=== PATIENT | male | born 1945 | race Hispanic/Latino ===

== ENCOUNTER 2022-09-20 19:53 | Emergency (ER) | payer MEDICAID, SELFPAY ==
--- NOTE | 2022-09-20 20:07 | ED.EYEPROB ---
HPI - Eye Problem General Stated complaint: trouble seeing Time Seen by Provider: 09/20/22 20:08 Source: patient and RN notes reviewed Mode of arrival: ambulatory Limitations: language barrier (Daughter translating) History of Present Illness HPI Narrative: 77-year-old male presents with concern for chronic vision problems and eye irritation. 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 He reports this problem has been going on for quite some time, several months ago he saw an eye doctor in [place] that prescribed drops that did not make much of a difference. He saw another eye doctor in [place] who prescribed drops that helped temporarily, this eye doctor told him he may have to have surgery on his eyes. The patient is not aware what kind of eyedrops he has been taking. He denies any acute changes that brought him to seek care tonight. He reports he has an eye doctor appointment tomorrow morning. chief complaint: vision change Related Data Allergies Allergy/AdvReac Type Severity Reaction Status Date / Time No Known Allergies Allergy Verified 09/20/22 20:27 Review of Systems Review of Systems: CONSTITUTIONAL: Denies malaise, chills, sweats, or fever. EYES: Reports visual changes over the last 6-10 months. Reports right eye redness, irritation, discharge. ENT: Denies rhinorrhea, congestion, sinus pain, otalgia or sore throat. SKIN: Denies rash or itching. NEUROLOGIC: Denies numbness, weakness, or headache. PSYCHIATRIC: Denies anxiety or depression. All systems reviewed & are unremarkable except as noted in HPI and below PMFSH Comments At time of signature, agree with nursing past medical, surgical, social and family history. There is no relevant family history pertinent to the presenting complaint Exam Narrative: GENERAL: Well-appearing, well-nourished, and in no acute distress. HEAD: Normocephalic, atraumatic. EYES: PERRLA, EOMI. No nystagmus. Right lower lashes in-turned with slight lower lid erythema, visible cloud over both eyes, mild conjunctival edema bilaterally crossing over the limbus bilaterally. No periorbital edema noted ENT: Nares clear, turbinates pink, no rhinorrhea or epistaxis. Mucous membranes moist. TM pearly foreman with sharp light reflex bilaterally; no tragal tenderness. NECK: Supple. CHEST: No respiratory distress. Speaks in full sentences. HEART: Regular rate and rhythm. SKIN: Warm, dry, no visible rash. NEURO: Alert and oriented x3. PSYCH: Normal mood and affect Course Course Emergency Course: Discussed with patient and his daughters that patient's vision problems require evaluation from an orthopedic coder, given that the appointment is tomorrow morning I discussed limited utility of an eye drop prescription tonight, I prefer for the eye doctor to evaluate the patient first. They are agreeable and agree keep the eye doctor appointment tomorrow. Patient is aware of, understands and agrees to treatment plan. Anticipatory guidance given. Patient agrees to follow-up as directed and is aware of reasons to seek care at the emergency department. Portions of this record may have been created with voice recognition software Level of Care: Express Care Visit Vital Signs Vital signs: Reviewed. MDM - Eye Problem MDM Narrative Medical decision making narrative: Consideration of the following conditions may be warranted for the presenting problem, they are not final diagnoses: Bacterial conjunctivitis, allergic conjunctivitis, viral conjunctivitis, foreign body, blepharitis, chalazion, hordeolum, corneal abrasion, preseptal cellulitis, orbital cellulitis. No evidence of proptosis, ophthalmoplegia, vision loss, pain with eye movement. Exam findings show no acute concerns or changes; patient is non-toxic appearing and is in no distress. Patient is appropriate for outpatient treatment and follow-up. Critical Care Time Critical Care Time Critical C
[2022-09-20 20:08] VITALS: BP 155/76; PULSE 69; RESP 12; TEMP 36.7; O2SAT 98
== END 2022-09-20 20:35 | disposition home or self-care (01) ==
PROVIDERS: Emergency Provider Nurse Practitioner
DX: H57.89 Other specified disorders of eye and adnexa (principal)
CPT/HCPCS: 99202; G0463

== ENCOUNTER 2024-01-21 10:02 | Outpatient (CLI) | payer BC, SELFPAY ==
--- NOTE | ~2024-01-21 | CT_ITS ---
CT Scan of the Chest without Contrast: Clinical Indication: Lung cancer screening, nicotine dependence Technique: Contiguous sections were acquired throughout the chest without intravenous contrast. Dose reduction technique was used on this scan by utilizing automated exposure control and iterative recon struction technique. The dose-length product (DLP) was 76.01 mGy-cm. Findings: There is no evidence of any significant mediastinal, hilar or axillary lymphadenopathy. The mediastin al soft tissues appear normal. There is no evidence of pleural or pericardial effusion. The lungs are clear, aside from calcified left upper lobe granuloma. Images through the upper abdomen reveal no abnormalities. Impression: Lung RADS 2: Benign appearance. 12 month follow-up screening CT advised. Reviewed, dictated and finalized at location . Impression: Lung RADS 2: Benign appearance. 12 month follow-up screening CT advised.
== END 2024-01-21 10:03 | disposition home or self-care (01) ==
LOC: ANHIMG 10:02
PROVIDERS: PCP Physician Assistant; Visit Provider Physician Assistant
DX: Z12.2 Encounter for screening for malignant neoplasm of respiratory organs (principal); Z87.891 Personal history of nicotine dependence
CPT/HCPCS: 71271

== ENCOUNTER 2024-02-03 17:50 | Inpatient (IN) | payer BC, SELFPAY ==
[2024-02-03] VITALS (9 sets, daily range): BP systolic 174–232; BP diastolic 59–99; PULSE 31–68; RESP 12–20; TEMP 36.2; O2SAT 95–100; BMI 23.9
--- NOTE | ~2024-02-03 | XR_ITS ---
EXAMINATION: XR chest 2V DATE: 02/07/2024 10:59 INDICATION: 24 hours post pacemaker insertion. TECHNIQUE: PA and lateral views of the chest were obtained. COMPARISON: 02/06/2024 and 02/03/2024 FINDINGS: Airspace opacity in the infrahilar right lower lung. Left lung is clear. No pulmonary edema, pleural effusion or pneumothorax. The cardiomediastinal silhouette is normal. Dual lead pacemaker seen with l chely projecting over the expected locations of the right atrium and right ventricle. IMPRESSION: 1. Mild opacities in the right infrahilar region which could represent atelectasis or pneumonia. Reviewed, dictated and finalized at location A. IMPRESSION: 1. Mild opacities in the right infrahilar region which could represent atelecta sis or pneumonia.
--- NOTE | ~2024-02-03 | CT_ITS ---
CT brain wo con Ordering provider: Jayleen June MD History: 78 years Male with . dizziness . Comparison: None. Technique: CT of the head without contrast. Radiation reduction technique utilized. DLP is 605.33 mGy . FINDINGS: BRAIN PARENCHYMA AND CSF SPACES: Old lacunar infarct in the left basal ganglia. 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 No midline shift, mass effect or hemorrhage. The brain parenchyma and CSF spaces are otherwise normal. VISUALIZED PARANASAL SINUSES: Well aerated. MASTOIDS: Well aerated. BONES: The bones appear intact. SOFT TISSUES: Visualized nasopharynx is normal. Superficial soft tissues are normal. IMPRESSION: No acute intracranial findings. Old lacunar infarct in the left basal ganglia. Widening of the space around the frontal lobes which may indicate CSF hygromas. Follow-up advised. Reviewed, dictated and finalized at location A. IMPRESSION: No acute intracranial findings. Old lacunar infarct in the left basal ganglia. Widening of the space around the frontal lobes which may indicate CSF hygromas . Follow-up advised.
--- NOTE | ~2024-02-03 | XR_ITS ---
EXAMINATION: XR chest 1V portable DATE: 02/06/2024 13:02 INDICATION: Pacemaker insertion TECHNIQUE: frontal view of the chest was obtained. COMPARISON: Chest radiograph dated 02/03/24 FINDINGS: There is mild bronchial wall thickening in the bilateral perihilar regions. Persistent subtle opaciti es in the left lower lung partially obscuring the left heart border. No pleural effusion or pneumotho rax. The heart size is normal. Dual lead pacemaker seen with leads projecting over the expected loca tions of the right atrium and right ventricle. IMPRESSION: 1. Bilateral perihilar bronchial wall thickening with mild opacities in the left lower lung zones whi ch could represent bronchitis with early pneumonia or mild pulmonary edema. Reviewed, dictated and finalized at location B. IMPRESSION: 1. Bilateral perihilar bronchial wall thickening with mild opacities in the lef t lower lung zones which could represent bronchitis with early pneumonia or mil d pulmonary edema.
--- NOTE | ~2024-02-03 | XR_ITS ---
XR chest 1V portable Ordering provider: Jayleen June MD History: 78 years Male with . bradycardia, HTN . Comparison: None. FINDINGS: MEDIASTINUM: The cardiac silhouette is slightly enlarged. LUNGS: No effusion or pneumothorax. Prominent markings in lower lobes more on the left side. Early pn eumonia is not excluded. OTHER: No free air under the diaphragm. Degenerative changes of the spine. IMPRESSION: Prominent markings in the lower lobes. Early pneumonia in the left lung base is not excluded. Reviewed, dictated and finalized at location A.
--- NOTE | 2024-02-03 18:54 | ECG_ITS ---
Test Date: 2024-02-03 19:00:49 Measurements Intervals [place] Rate: 49 P: 55 MA: 163 QRS: 43 QRSD: 96 T: -4 QT: 445 QTc: 405 Interpretive Statements SINUS BRADYCARDIA POSSIBLE LEFT ATRIAL ENLARGEMENT [-0.1mV P WAVE IN V1/V2] NONSPECIFIC ST AND T WAVE ABNORMALITY No previous ECG available for comparison Electronically Signed On 02-04-2024 11:49:49 CDT by Shadia Zheng M.D.
--- NOTE | 2024-02-03 19:05 | ED.RECABL ---
HPI - Recheck/Abnormal Lab/Rx General Chief Complaint: Recheck/Abnormal Lab/Rx Stated Complaint: high blood pressure Time Seen by Provider: 02/03/24 19:01 Source: patient and family Mode of arrival: ambulatory Limitations: language barrier ( Uzbek speaking; Interpretive services [facility] #[id number]) History of Present Illness HPI narrative: patient presents with concern for hypertension. He reports being compliant on his medication which is lisinopril 5 mg daily. He has also been experiencing dizziness since Friday. He denies any chest pain or shortness of breath although he has been having a headache when he coughs. He notes that he has been coughing particularly at night during which time he feels hot. He notes that he has had urinary frequency ever since his cholecystectomy. No prior myocardial infarction. No slurred speech or unilateral symptoms with his dizziness. He was told that his cholesterol was high but he is not on a statin. 5 cigarettes/day. Related Data Home Medications Medication Instructions Recorded Confirmed lisinopril 5 mg PO DAILY 02/03/24 02/03/24 Allergies Allergy/AdvReac Type Severity Reaction Status Date / Time No Known Allergies Allergy Verified 09/20/22 20:27 [facility] Past Medical History Medical History High cholesterol Hypertension Surgical History Surgical History History of cholecystectomy [facility] Social History Social History Years smoked: 66 Smoking status: Current every day smoker Tobacco type: cigarettes Alcohol intake: never Substance use: current Last use: 02/03/2024 Do You Feel Safe in your Home?: Yes Lack of Transportation: YES Lack of Food: Never True Current Housing: I Have Housing Concerned About Future Housing: No Difficulty Paying Gas/Electric Bills: No Difficulty Paying for Meds: No Currently Unemployed: No Education: Grade School Difficulty w/ Childcare or Family Care: No Spiritual care concerns: No Exam Narrative: GENERAL: Well-appearing, well-nourished, and in no acute distress. HEAD: Normocephalic, atraumatic. EYES: Non injected, non icteric ENT: Nares clear, no rhinorrhea or epistaxis. NECK: Supple. CHEST: Speaking in full sentences. No respiratory distress. HEART: Intermittently bradycardic rate and rhythm to the 30s ABDOMEN: Soft, nondistended. EXTREMITIES: Normal range of motion. No lower extremity edema. SKIN: Warm, dry, no rash. NEURO: No focal deficits. Alert and oriented x3. PSYCH: Normal mood and affect. Course Vital Signs Vital signs: Vital Signs Temperature 97.2 F L 02/03/24 18:18 Pulse Rate 68 02/03/24 18:18 Respiratory Rate 17 02/03/24 18:18 Blood Pressure 200/62 H 02/03/24 18:18 Pulse Oximetry 99 02/03/24 18:18 Oxygen Delivery Room Air 02/03/24 18:18 Temperature 98.4 F 02/05/24 08:00 Pulse Rate 45 L 02/05/24 10:00 Respiratory Rate 20 02/05/24 08:00 Blood Pressure 171/72 H 02/05/24 08:00 Pulse Oximetry 94 02/05/24 08:00 Oxygen Delivery Room Air 02/05/24 08:00 MDM - Recheck/Abnormal Lab/Rx MDM Narrative Medical decision making narrative: patient presents with concern for dizziness and high blood pressure Despite being compliant with his 5 mg daily lisinopril. in the emergency department he is afebrile with vital signs that show marked hypertension at 200/62 (MAP 108mmHg). Patient does become bradycardic in the 30s. He remains hemodynamically stable without altered mental status and with hypertension. 0.5mg atropine given with no change. Patient is not on a beta-bernarda or calcium channel bernarda or digoxin. He does have some concerning findings in lateral precordial leads. Await troponin. While bradycardic in the 30s, repeat EKG obtained which demonstrates Type 2 Mobitz II in
--- NOTE | 2024-02-03 19:12 | ECG_ITS ---
Test Date: 2024-02-03 21:51:39 Measurements Intervals [place] Rate: 50 P: 58 NV: 159 QRS: 52 QRSD: 98 T: -88 QT: 504 QTc: 460 Interpretive Statements SINUS BRADYCARDIA WITH 2:1 AV BLOCK WITH FREQUENT VENTRICULAR PREMATURE COMPLEXES ST DEVIATION AND MODERATE T-WAVE ABNORMALITY, CONSIDER LATERAL ISCHEMIA [-0.1+ mV T WAVE IN I/aVL/V5/V6] ST DEVIATION AND MODERATE T-WAVE ABNORMALITY, CONSIDER INFERIOR ISCHEMIA [-0.1+ mV T WAVE IN II/aVF] Compared to ECG 02/03/2024 19:00:49 2:1 AV BLOCK NOW PRESENT Electronically Signed On 02-04-2024 11:51:18 CDT by Shadia Zheng M.D.
[2024-02-03 19:20] LABS: Basophils Absolute Auto 0.1 K/mm3 (0.0-0.1); Basophils Percent Auto 0.8 % (0.2-1.2); Eosinophils Absolute Auto 0.2 K/mm3 (0-0.3); Eosinophils Percent Auto 1.9 % (0-4.4); Hematocrit 44.7 % (42.0-52.0); Hemoglobin 14.6 g/dL (14.0-18.0); Immature Granulocyte Absolute 0.02 K/mm3 (0.00-0.031); Immature Granulocyte Percent A 0.2 % (0-0.5); Immature Platelet Fraction Pct 15.3 % (0.9-11.2); Lymphocytes Percent Auto 30.6 % (18.3-44.2); Mean Corpuscular HGB Conc 32.7 g/dl (32-36); Mean Corpuscular Hemoglobin 27.8 pg (26-34); Mean Platelet Volume 13.2 fl (7.4-10.4); Monocytes Absolute Auto 0.9 K/mm3 (0.1-0.6); Monocytes Percent Auto 10.6 % (2.6-8.5); Neutrophils Absolute Auto 4.9 K/mm3 (1.3-6.7); Neutrophils Percent Auto 55.9 % (45.5-73.1); Platelet Count Result 127 k/mm3 (150-375); Red Blood Count 5.26 M/mm3 (4.6-6.20); Red Cell Distribution Width 14.5 % (11.5-14.5); White Blood Count 8.8 K/mm3 (4.5-10.0)
[2024-02-03] MEDS: ATROPINE SULFATE 1 MG/ML VIAL 0.5 MG IV PUSH (19:26)
[2024-02-03 19:28] LABS: Alanine Aminotransferase 14 U/L (6-50); Alkaline Phosphatase 73 U/L (38-126); Anion Gap 5 mmol/L (4-12); Aspartate Amino Transferase 24 U/L (17-59); Bilirubin,Total 0.5 mg/dL (0.2-1.3); Blood Urea Nitrogen 24 mg/dL (9-20); Calcium 8.3 mg/dL (8.4-10.2); Carbon Dioxide 28 mmol/L (22-30); Chloride 107 mmol/L (98-107); Estimated CRCL calculation 54 ml/min; Estimated Glomerular Filt Rate > 60; Glucose 115 mg/dL (65-110); Magnesium 2.4 mg/dL (1.6-2.3); Potassium 3.8 mmol/L (3.4-5.0); Sodium 140 mmol/L (137-145)
--- NOTE | 2024-02-03 19:45 | PC.NURSE ---
Provider aware of pts low HRs, no further orders after administration of 0.5mg Atropine. 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
[2024-02-03 19:56] LABS: Appearance Urine Clear (Clear); Bilirubin Urine Negative (Negative); Blood Urine Negative (Negative); Color Urine Yellow (Yellow); Glucose Urine UA Negative (Negative); Ketones Urine Negative (Negative); Leukocyte Esterase Ur Negative LEU/UL (Negative); Nitrate Urine Negative (Negative); Protein Urine Negative (Negative); Specific Grav Ur 1.019 (1.001-1.035); pH Urine 6.5 (5.0-9.0)
[2024-02-03] MEDS: hydrALAZINE HCL 20 MG/ML VIAL 10 MG IV PUSH (20:05)
[2024-02-03 20:07] LABS: Add Urine Microscopic? NO
[2024-02-03 20:47] LABS: Troponin I < 0.012 ng/mL (0.000-0.034)
[2024-02-03 20:49] LABS: Influenza A QL RT-PCR Negative (Negative); Influenza B QL RT-PCR Negative (Negative); RSV RNA, RT-PCR Negative (Negative); SARS-CoV-2 RNA PCR Negative (Negative)
[2024-02-03] MEDS: hydrALAZINE HCL 20 MG/ML VIAL IV PUSH (21:11)
--- NOTE | 2024-02-03 21:34 | ECG_ITS ---
Test Date: 2024-02-03 19:11:30 Measurements Intervals [place] Rate: 33 P: 0 PA: 0 QRS: 38 QRSD: 90 T: -40 QT: 510 QTc: 380 Interpretive Statements SINUS BRADYCARDIA WITH 2:[address] DEVIATION AND MODERATE T-WAVE ABNORMALITY, CONSIDER LATERAL ISCHEMIA [-0.1+ mV T WAVE IN I/aVL/V5/V6] Compared to ECG 02/03/2024 19:00:49 2:1 AV BLOCK NOW PRESENT Electronically Signed On 02-04-2024 13:09:19 CDT by Shadia Zheng M.D.
--- NOTE | 2024-02-03 21:53 | PM.IMHP ---
H&P: HPI History of Present Illness Date/Time: 02/03/24 21:53 Chief Complaint: dizzy Narrative: This is a 78-year-old male with past medical history significant for hypertension, tobacco dependence. patient was brought to the emergency room for evaluation due to dizziness for several days, patient denies any vision changes, shortness of breath, chest pain, leg swelling, syncope or near-syncope, No fevers, no rigors, no chills. in emergency room patient was found to have a systolic blood pressure of 230/87. Patient was also found to have a heart rate that was elated in between 30-50. Patient had pacer pads placed on. Patient has been admitted for further evaluation management and treatment. XR chest 1V portable Ordering provider: Jayleen June MD History: 78 years Male with . bradycardia, HTN . Comparison: None. FINDINGS: MEDIASTINUM: The cardiac silhouette is slightly enlarged. LUNGS: No effusion or pneumothorax. Prominent markings in lower lobes more on the left side. Early pneumonia is not excluded. OTHER: No free air under the diaphragm. Degenerative changes of the spine. IMPRESSION: Prominent markings in the lower lobes. Early pneumonia in the left lung base is not excluded. CT brain wo con Ordering provider: Jayleen June MD History: 78 years Male with . dizziness . Comparison: None. Technique: CT of the head without contrast. Radiation reduction technique utilized. DLP is 605.33 mGy. FINDINGS: BRAIN PARENCHYMA AND CSF SPACES: Old lacunar infarct in the left basal ganglia. 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 No midline shift, mass effect or hemorrhage. The brain parenchyma and CSF spaces are otherwise normal. VISUALIZED PARANASAL SINUSES: Well aerated. MASTOIDS: Well aerated. BONES: The bones appear intact. SOFT TISSUES: Visualized nasopharynx is normal. Superficial soft tissues are normal. IMPRESSION: No acute intracranial findings. Old lacunar infarct in the left basal ganglia. Widening of the space around the frontal lobes which may indicate CSF hygromas. Follow-up advised. Review of Systems Review of Systems: dizziness. Constitutional: Constitutional: Denies chills, Denies fatigue, Denies fever(s), Denies frequent falls, Denies headache(s), Denies malaise, Denies night sweats, Denies poor appetite and Denies weakness Eyes: Eyes: Denies change in vision ENT: Denies dysphagia, Denies vertigo, Reports dizziness, Denies nasal congestion, Denies nasal discharge, Denies odynophagia and Denies disequilibrium Cardiovascular: Cardiovascular: Denies chest pain, Denies syncope, Denies leg edema, Reports lightheadedness, Denies radiating jaw, neck or arm pain, Denies palpitations and Denies dyspnea Respiratory: Respiratory: Denies chest congestion, Reports cough and Denies dyspnea Gastrointestinal: Gastrointestinal: Denies abdominal pain, Denies nausea and Denies vomiting Genitourinary: Genitourinary: Denies dysuria Musculoskeletal: Musculoskeletal: Denies myalgias Integumentary/Breasts: Skin/Breast: Denies rash Neurologic: Denies abnormal gait, Reports dizziness, Denies focal weakness and Denies Sensory deficit (Neuro) Psychiatric: Psychiatric: Reports no additional psychiatric complaints and Reports as per HPI Endocrine: Endocrine: Denies cold intolerance, Denies heat intolerance, Denies polyphagia, Denies polydipsia and Denies polyuria Hematologic/Lymphatic: Hematologic/Lymphatic: Reports no additional hematologic/lymphatic complaints and Reports as per HPI Allergic/Immunologic: Allergic/Immunologic: Reports no additional allergic/immunologic complaints and Reports as per HPI [facility] Past Medical History Medical History (Updated 02/04/24 @ 00:02 by Bj Lopes MD) High cholesterol Hypertension Surgical History Surgical History (Updated 02/03/24 @ 19:29 by Charleen
[2024-02-03] MEDS: hydrALAZINE 10 MG TABLET PO (22:33)
[2024-02-03 22:56] LABS: Troponin I 0.019 ng/mL (0.000-0.034)
--- NOTE | 2024-02-03 23:54 | ADMGEN ---
This patient, Bret Villarreal, was admitted to IMU Room 231-01. Patient/family oriented to hospital policies and general routines including ID bracelet, bed and alarms, visiting hours, pain management, procedures, bathroom and other care routines, personal items, smoking policy, room service/diet, and visiting hours. Information on how to activate the Rapid Response Team has been discussed. Patient/Family are encouraged to report perceived risks to care and to ask questions if they do not understand what they are told or what they should do. Pt arrived to the floor at 2335.
[2024-02-04] VITALS (14 sets, daily range): BP systolic 152–187; BP diastolic 47–64; PULSE 30–93; RESP 16–18; TEMP 36.1–36.6; O2SAT 95–98
--- NOTE | 2024-02-04 | ECHO_ITS ---
Patient Info Name: Bret Villarreal Age: 78 years : 1945 Gender: Male Ht: 66 in Wt: 169 lbs BSA: 1.91 m2 HR: 35 bpm BP: 167 / 47 mmHg Heart Rhythm: Bradycardia Technical Quality: Good Exam Date: 02/04/2024 7:21 AM Exam Location: Echo Lab Patient Status: Inpatient Admit Date: 02/03/2024 Staff Ordering Physician: Bj Lopes MD [employer]: Viji Real RDCS Attending Provider: Bj Lopes MD Referring Physician: Marianne WHITNEY; Exam Type: CA echo doppler color flow Study Info Indications - uncontrolled htn Complete two-dimensional, color flow and Doppler transthoracic echocardiogram is performed with contrast to opacify the left ventricle and to improve the deliniation of the left ventricle endocardial borders. Contrast/Agitated Saline Contrast/Ag. Saline: Definity Amount: 2.00 ml Administered By: Viji Real RDCS Existing IV Access: Yes IV Access Condition: patent with no signs of infiltration Summary 1. Left ventricular chamber dimension is normal. 2. Left ventricular systolic function is normal, estimated at 65-70%. 3. The left ventricular diastolic function is grade I diastolic dysfunction. 4. Right ventricular systolic function is normal. 5. There is mild mitral valve regurgitation. 6. There is mild tricuspid valve regurgitation. Left Ventricle Left ventricular chamber dimension is normal. Left ventricular systolic function is normal, estimated at 65-70%. There is no increased left ventricular wall thickness. The left ventricular diastolic function is grade I diastolic dysfunction. Right Ventricle Right ventricular chamber dimension is normal. Right ventricular systolic function is normal. Left Atria Left atrial chamber dimension is normal. Right Atria Right atrial chamber dimension is normal. Atrial Septum Intact interatrial septum visualized by color flow imaging. Aortic Valve The aortic valve is trileaflet. There is no aortic valve stenosis. There is no aortic valve regurgitation. There is mild aortic valve calcification. Pulmonic Valve The pulmonic valve is not well visualized. There is trace pulmonic regurgitation. Mitral Valve There is mild mitral valve regurgitation. Tricuspid Valve There is mild tricuspid valve regurgitation. Pericardium/Pleural There is no pericardial effusion. Inferior Vena Cava Normal inferior vena cava with >50% collapse upon inspiration consistent with normal right atrial pressure, 3 mmHg. Aorta The aortic root size at the sinus of Valsalva is normal. Left Ventricular Outflow Tract Name Value Normal LVOT 2D LVOT Diameter 2.0 cm LVOT Doppler LVOT Peak Gradient 8 mmHg LVOT Mean Gradient 4 mmHg LVOT VTI 33 cm LVOT VTI/AV VTI Ratio 0.8 LVOT Stroke Volume 108 ml LVOT CO 3.5 l/min LVOT CI 1.8 l/min/m2 Pulmonic Valve Name Value
[2024-02-04] MEDS: PERFLUTREN LIPID MICROSPHERES 1.5 ML VIAL DILUTED TO 10 ML TOTAL VOLUME IV PUSH (07:54)
[2024-02-04] MEDS: lisinopriL 5 MG TABLET PO ×2 (08:13→11:30)
--- NOTE | 2024-02-04 09:24 | PM.CNCAR ---
Assessment and Plan Assessment and plan (1) High-grade atrioventricular block: Code(s): I44.39 - Other atrioventricular block Status: Acute Assessment and Plan: Patient currently in sinus bradycardia with 2:1 AV block. Atropine 0.5mg x 1 given in the ER with no improvement. Not on any AV clementina blocking agents. Upon my evaluation, patient denies any symptoms. Remains hemodynamically stable. Telemetry with sinus bradycardia with 2:1 AV block that is persistent. Heart rates on telemetry overnight as low as the high 20s and will go up to the 60s. Troponins are negative. Will check TSH level. Echocardiogram ordered and pending. As patient currently asymptomatic at rest and hemodynamically stable, does not need emergent/urgent temporary transvenous pacer. Will need permanent pacemaker. Discussed indication for permanent pacemaker with the patient and procedure details. Patient agreeable. I did discuss with the patient that if his LVEF <35%, then he would need an ICD instead, and this would not be done here, necessitating transfer to another institution. If LVEF is preserved, then can proceed with pacemaker implantation here. Will discuss with Dr. Fernandez regarding timing of pacemaker placement. (2) Hypertensive crisis: Code(s): I16.9 - Hypertensive crisis, unspecified Status: Acute Assessment and Plan: Improved, however, blood pressures are still uncontrolled. Will increase Lisinopril to 10mg. Avoid AV clementina blocking agents due to 2:1 AV block. Echocardiogram pending. (3) Tobacco dependence: Code(s): F17.200 - Nicotine dependence, unspecified, uncomplicated Status: Acute Assessment and Plan: Encourage cessation. Plan Recommendations and plan discussed with Hospitalist. Case discussed with Dr. Fernandez. History of Present Illness History of Present Illness Consult date/time: 02/04/24 09:24 Requesting physician: Jayleen June MD Consult reason: Other (Bradycardia ) Reason For Visit: Hypertensive Crisis with Bradycardia Narrative: This is a 78 year old male with hypertension and tobacco dependence who presented with dizziness that has been occurring since Friday. No chest pain, shortness of breath, palpitations, syncope. No symptoms at rest during my evaluation. Blood pressures in the ER as high as 232/87mmHg. He was given Hydralazine with improvement in blood pressure. He takes Lisinopril 5mg once daily, which was resumed. In the ER, EKG shows sinus bradycardia with 2:1 AV block, with heart rates as low as the 30s. Atropine 0.5mg x 1 given with no improvement. Not on any AV clementina blocking agents. Upon my evaluation, patient denies any symptoms. Telemetry with sinus bradycardia with 2:1 AV block that is persistent. Heart rates on telemetry overnight as low as the high 20s and will go up to the 60s. Troponins are negative. Of note, patient is [place] speaking only. His daughter was at bedside, but she is also [place] speaking only. Interpretation done via the hospital seismic interpreter services. Review of Systems Review of Systems: All systems reviewed & are unremarkable except as noted in HPI and below (HPI) PMFSH Past Medical History Medical History High cholesterol Hypertension Surgical History Surgical History History of cholecystectomy [place] Social History Social History Years smoked: 66 Smoking status: Current every day smoker Tobacco type: cigarettes Alcohol intake: never Substance use: current Last use: 02/03/2024 Do You Feel Safe in your Home?: Yes Lack of Transportation: YES Lack of Food: Never True Current Housing: I Have Housing Concerned About Future Housing: No Difficulty Paying Gas/Electric Bills: No Difficulty Paying for Meds: No Currently Unemployed: No Education: Gr
--- NOTE | 2024-02-04 09:27 | IVDEFINITY ---
Prior to administration of IV Definity the patient was educated on the risks and benefits of the imaging enhancing agent including potential adverse side effects. The patient verbalized understanding. Allergies were verified. No exclusion criteria were identified and at least one of the following inclusion criteria were met: 1) physician request, 2) patient technically difficult to image (per the [place] [employer] guidelines of two or more segments not discernable within the apical view), or 3) questionable left ventricular function. ?
--- NOTE | 2024-02-04 09:33 | PM.IMPN ---
Progress Note: A&P Assessment and Plan (1) High-grade atrioventricular block: Code(s): I44.39 - Other atrioventricular block Status: Acute (2) Tobacco dependence: Code(s): F17.200 - Nicotine dependence, unspecified, uncomplicated Status: Acute (3) Hypertensive crisis: Code(s): I16.9 - Hypertensive crisis, unspecified Status: Acute (4) Thrombocytopenia: Code(s): D69.6 - Thrombocytopenia, unspecified Status: Acute Plan This is a 78-year-old male with past medical history significant for hypertension, tobacco dependence. patient was brought to the emergency room for evaluation due to dizziness for several days, patient denies any vision changes, shortness of breath, chest pain, leg swelling, syncope or near-syncope, No fevers, no rigors, no chills. in emergency room patient was found to have a systolic blood pressure of 230/87. Patient was also found to have a heart rate that was elated in between 30-50. Patient had pacer pads placed on. Patient has been admitted for further evaluation management and treatment. Symptomatic second-degree AV block, Mobitz 2 Patient has dizziness EKG showed second-degree AV block Mobitz 2, 2 :1 conduction Hold beta-bernarda, calcium channel bernarda Pending echocardiogram Telemetry monitoring Consult manager support services for evaluation treatment Hypertensive emergency Code(s): Blood pressure 232/ 87 POA Will increase to lisinopril 20 mg daily p.o., hydrochlorothiazide 25 mg once and daily p.o. hydralazine 50 mg t.i.d. p.o. Continue hydralazine IV p.r.n. with parameters Avoid calcium channel bernarda beta-bernarda Tobacco dependence: Code(s): F17.200 - Nicotine dependence, unspecified, uncomplicated Status: Acute Assessment and Plan: nicotine patch as needed Subjective Date/time seen: 02/04/24 09:33 Interval history: I saw and examined the patient in presents of patient's nurse, conversation was is interpreted by patient's daughter. Patient denied lightheadedness, palpitation, chest pain, shortness of breath at rest. Patient afebrile, blood pressure stable, telemetry showed high-grade AV block 2:1 conduction Exam Narrative: GENERAL: Pleasant, in no acute distress. Well-nourished. - EYES: EOMI. Anicteric. - HENT: Moist mucous membranes. - LUNGS: Clear to auscultation bilaterally, no wheezing, rhonchi, or rales. - CARDIOVASCULAR: Irregular rhythm, bradycardia,. No murmur. No JVD. - ABDOMEN: Soft, non-tender and non-distended. No palpable masses. - EXTREMITIES: No edema. Peripheral pulses 2+. Non-tender. - NEUROLOGIC: No focal neurological deficits. CN II-XII grossly intact. - PSYCHIATRIC: Awake, Alert and oriented x 3. Appropriate mood and affect. - SKIN: No rashes or lesions. Warm. - LYMPH: No cervical lymphadenopathy. Objective Data Vital Signs Vital Signs: Vital Signs - 24 hr 02/03/24 18:18 02/03/24 19:02 02/03/24 19:28 Temperature 97.2 F L Pulse Rate 68 31 L 68 Respiratory Rate 17 13 20 Blood Pressure 200/62 H 198/59 H 232/87 H Pulse Oximetry 99 95 97 Oxygen Delivery Room Air 02/03/24 19:44 02/03/24 19:49 02/03/24 20:48 Temperature Pulse Rate 35 L 38 L Respiratory Rate 16 17 14 Blood Pressure 215/99 H 197/62 H Pulse Oximetry 100 100 96 Oxygen Delivery 02/03/24 21:05 02/03/24 21:45 02/03/24 23:35 Temperature 97.1 F L Pulse Rate 37 L 36 L 39 L Respiratory Rate 12 15 18 Blood Pressure 198/88 H 174/67 H 178/64 H Pulse Oximetry 96 100 100 Oxygen Delivery 02/04/24 00:00 02/04/24 02:00 02/04/24 04:00 Temperature 97.5 F L Pulse Rate 36 L 35 L 36 L Respiratory Rate 18 Blood Pressure 167/47 H Pulse Oximetry 98 Oxygen Delivery 02/04/24 04:00 02/04/24 05:59 02/04/24 08:00 Temperature 97.8 F Pulse Rate 30 L 31 L 58 L Respiratory Rate 16 Blood Pressure 181/49 H Pulse Oximetry 95 Oxygen Delivery 02/04/24 00:14 Temperature 97.1 F
--- NOTE | 2024-02-04 10:18 | PC.NURSE ---
Lia Dimas at bedside to evaluate pt in complete heart block. greensman was used. Pt reports no symptoms of heart rate in the 30s. Denies light headedness or dizziness. Plan made for permanent pacemaker insertion tomorrow or Friday. Pt and daughter had all questions answered.
[2024-02-04 10:25] LABS: Prothrombin Time 13.6 Seconds (11.1-14.7)
[2024-02-04] MEDS: hydroCHLOROthiazide 25 MG TABLET PO (11:30)
[2024-02-04] MEDS: lisinopriL 10 MG TABLET PO (11:30)
[2024-02-04] MEDS: hydrALAZINE HCL 50 MG TABLET PO ×2 (11:30→17:41)
--- NOTE | 2024-02-04 15:18 | ECG_ITS ---
Test Date: 2024-02-04 15:27:59 Measurements Intervals [place] Rate: 54 P: 59 NE: 192 QRS: -50 QRSD: 133 T: 126 QT: 519 QTc: 493 Interpretive Statements SINUS BRADYCARDIA MARKED LEFT AXIS DEVIATION [QRS AXIS < -30] LEFT BUNDLE BRANCH BLOCK [120+ ms QRS DURATION, 80+ ms Q/S IN V1/V2, 85+ ms R IN I/aVL/V5/V6] Compared to ECG 02/03/2024 21:51:39 2:1 AV BLOCK NOT PRESENT ON THIS STUDY. LEFT BUNDLE BRANCH BLOCK NOW PRESENT Electronically Signed On 02-05-2024 13:31:13 CDT by Shadia Zheng M.D.
--- NOTE | 2024-02-04 15:32 | PC.NURSE ---
Change in EKG, intermittently in sinus rhythm with a bundle branch and what appears to be ST elevation on telemetry. EKG was taken. Dr. Zheng notified. Pt is asymptomatic.
[2024-02-04] MEDS: hydrALAZINE 10 MG TABLET PO (20:25)
[2024-02-05] VITALS (17 sets, daily range): BP systolic 154–200; BP diastolic 40–72; PULSE 35–95; RESP 14–20; TEMP 36.2–36.9; O2SAT 94–99
[2024-02-05] MEDS: hydrALAZINE HCL 20 MG/ML VIAL 10 MG IV PUSH (01:04)
[2024-02-05] MEDS: hydroCHLOROthiazide 25 MG TABLET PO (08:41)
[2024-02-05] MEDS: hydrALAZINE HCL 50 MG TABLET PO ×3 (08:41→17:31)
[2024-02-05] MEDS: lisinopriL 20 MG TABLET PO (08:41)
--- NOTE | 2024-02-05 11:13 | PM.IMPN ---
Progress Note: A&P Assessment and Plan (1) High-grade atrioventricular block: Code(s): I44.39 - Other atrioventricular block Status: Acute (2) Tobacco dependence: Code(s): F17.200 - Nicotine dependence, unspecified, uncomplicated Status: Acute (3) Hypertensive crisis: Code(s): I16.9 - Hypertensive crisis, unspecified Status: Acute (4) Thrombocytopenia: Code(s): D69.6 - Thrombocytopenia, unspecified Status: Acute Plan This is a 78-year-old male with past medical history significant for hypertension, tobacco dependence. patient was brought to the emergency room for evaluation due to dizziness for several days, patient denies any vision changes, shortness of breath, chest pain, leg swelling, syncope or near-syncope, No fevers, no rigors, no chills. in emergency room patient was found to have a systolic blood pressure of 230/87. Patient was also found to have a heart rate that was elated in between 30-50. Patient had pacer pads placed on. Patient has been admitted for further evaluation management and treatment. Symptomatic second-degree AV block, Mobitz 2 Patient has dizziness EKG showed second-degree AV block Mobitz 2, 2 :1 conduction Hold beta-bernarda, calcium channel bernarda 02/03 echocardiogram 1. Left ventricular chamber dimension is normal. 2. Left ventricular systolic function is normal, estimated at 65-70%. 3. The left ventricular diastolic function is grade I diastolic dysfunction. 4. Right ventricular systolic function is normal. 5. There is mild mitral valve regurgitation. 6. There is mild tricuspid valve regurgitation. Continue Telemetry monitoring Consult skeiner for evaluation treatment, appreciate cardiology consultation Plans pacemaker placement tomorrow Hypertensive emergency Code(s): Blood pressure 232/ 87 POA Will increase to lisinopril 20 mg daily p.o., hydrochlorothiazide 25 mg once and daily p.o. hydralazine 50 mg t.i.d. p.o. Continue hydralazine IV p.r.n. with parameters Avoid calcium channel bernarda beta-bernarda Tobacco dependence: Code(s): F17.200 - Nicotine dependence, unspecified, uncomplicated Status: Acute Assessment and Plan: nicotine patch as needed Subjective Date/time seen: 02/05/24 11:13 Interval history: I saw and examined the patient. conversation was is interpreted by patient's daughter. Patient ambulated a.m. with permission of skeiner Patient denied lightheadedness, palpitation, chest pain, shortness of breath. Patient afebrile, blood pressure stable, telemetry showed high-grade AV block 2:1 conduction Exam Narrative: GENERAL: Pleasant, in no acute distress. Well-nourished. - EYES: EOMI. Anicteric. - HENT: Moist mucous membranes. - LUNGS: Clear to auscultation bilaterally, no wheezing, rhonchi, or rales. - CARDIOVASCULAR: Irregular rhythm, bradycardia,. No murmur. No JVD. - ABDOMEN: Soft, non-tender and non-distended. No palpable masses. - EXTREMITIES: No edema. Peripheral pulses 2+. Non-tender. - NEUROLOGIC: No focal neurological deficits. CN II-XII grossly intact. - PSYCHIATRIC: Awake, Alert and oriented x 3. Appropriate mood and affect. - SKIN: No rashes or lesions. Warm. - LYMPH: No cervical lymphadenopathy. Objective Data Vital Signs Vital Signs: Vital Signs - 24 hr 02/04/24 12:00 02/04/24 12:00 02/04/24 12:00 Temperature 97.3 F L Pulse Rate 36 L 68 57 L Respiratory Rate 18 Blood Pressure 187/53 H Pulse Oximetry 97 Oxygen Delivery Room Air 02/04/24 14:00 02/04/24 16:00 02/04/24 16:00 Temperature Pulse Rate 62 57 L 57 L Respiratory Rate 18 Blood Pressure Pulse Oximetry 97 Oxygen Delivery Room Air 02/04/24 16:00 02/04/24 19:45 02/04/24 20:00 Temperature 97 F L 97.3 F L Pulse Rate 75 40 L Respiratory Rate 16 16 Blood Pressure 152/59 H 171/58 H Pulse Oximetry 95 96 Oxygen Delivery Room Air 02/04/24 20:0
--- NOTE | 2024-02-05 11:25 | PM.PNCARD ---
Progress Note: A&P Assessment and Plan (1) High-grade atrioventricular block: Code(s): I44.39 - Other atrioventricular block Status: Acute Assessment and Plan: Scheduled for permanent dual-chamber pacemaker placement with Dr. Fernandez on 02/05. NPO at midight. (2) Hypertensive crisis: Code(s): I16.9 - Hypertensive crisis, unspecified Status: Acute Assessment and Plan: Improved, however, blood pressures are still uncontrolled. On Lisinopril, HCTZ and Hydralazine per the Hospitalist. Avoid AV clementina blocking agents due to 2:1 AV block. (3) Tobacco dependence: Code(s): F17.200 - Nicotine dependence, unspecified, uncomplicated Status: Acute Assessment and Plan: Recommendations and plan discussed with Hospitalist. Subjective Date/time seen: 02/05/24 11:25 Interval history: Reason for visit: Bradycardia with 2:1 AV Block HPI: This is a 78 year old male with hypertension and tobacco dependence who presented with dizziness that has been occurring since Friday. No chest pain, shortness of breath, palpitations, syncope. No symptoms at rest during my evaluation. Blood pressures in the ER as high as 232/87mmHg. He was given Hydralazine with improvement in blood pressure. He takes Lisinopril 5mg once daily, which was resumed. In the ER, EKG shows sinus bradycardia with 2:1 AV block, with heart rates as low as the 30s. Atropine 0.5mg x 1 given with no improvement. Not on any AV clementina blocking agents. Upon my evaluation, patient denies any symptoms. Telemetry with sinus bradycardia with 2:1 AV block that is persistent. Heart rates on telemetry overnight as low as the high 20s and will go up to the 60s. Troponins are negative. Of note, patient is [place] speaking only. His daughter was at bedside, but she is also [place] speaking only. Interpretation done via the hospital turret press operator services. Date of service 02/04: Asymptomatic, feeling okay. EKG yesterday afternoon showed sinus bradycardia with LBBB, however, tele this morning with normal QRS with 2:1 AV block. Review of Systems Review of Systems: All systems reviewed & are unremarkable except as noted in HPI and below (HPI) Exam Const: General: comfortable and no acute distress HENMT: Mouth: Yes moist mucous membranes Eyes: General: appearance normal, both eyes and all related structures Sclera: sclerae normal Neck: Neck: supple Resp: Effort & Inspection: normal respiratory effort Cardio: Rate: bradycardic Rhythm: regular rhythm Skin: General skin exam: normal color Neuro: Speech: normal speech Psych: Mental Status: mental status grossly normal Affect: normal affect Objective Data Vital Signs Vital Signs: Vital Signs - 24 hr 02/04/24 12:00 02/04/24 12:00 02/04/24 12:00 Temperature 36.3 C L Pulse Rate 36 L 68 57 L Respiratory Rate 18 Blood Pressure 187/53 H Pulse Oximetry 97 Oxygen Delivery Room Air 02/04/24 14:00 02/04/24 16:00 02/04/24 16:00 Temperature Pulse Rate 62 57 L 57 L Respiratory Rate 18 Blood Pressure Pulse Oximetry 97 Oxygen Delivery Room Air 02/04/24 16:00 02/04/24 19:45 02/04/24 20:00 Temperature 36.1 C L 36.3 C L Pulse Rate 75 40 L Respiratory Rate 16 16 Blood Pressure 152/59 H 171/58 H Pulse Oximetry 95 96 Oxygen Delivery Room Air 02/04/24 20:00 02/04/24 21:50 02/04/24 22:00 Temperature Pulse Rate 56 L 42 L Respiratory Rate Blood Pressure 166/63 H Pulse Oximetry Oxygen Delivery 02/05/24 00:00 02/05/24 00:00 02/05/24 00:00 Temperature 36.4 C Pulse Rate 69 66 Respiratory Rate 18 Blood Pressure 200/69 H Pulse Oximetry 97 Oxygen Delivery Room Air 02/05/24 01:36 02/05/24 02:00 02/05/24 04:00 Temperature Pulse Rate 95 63 Respiratory Rate Blood Pressure 155/67 H Pulse Oximetry Oxygen Delivery 02/05/24 04:00 02/05/24 04:00 02/05/24 06:00 Temperature 36.3 C L Pulse Rate 68
[2024-02-05 11:26] LABS: Hematocrit 48.4 % (42.0-52.0); Hemoglobin 16.1 g/dL (14.0-18.0); Immature Platelet Fraction Pct 15.6 % (0.9-11.2); Mean Corpuscular HGB Conc 33.3 g/dl (32-36); Mean Corpuscular Hemoglobin 28.2 pg (26-34); Mean Corpuscular Volume 84.8 fl (80-100); Mean Platelet Volume 12.7 fl (7.4-10.4); Platelet Count Result 138 k/mm3 (150-375); Red Blood Count 5.71 M/mm3 (4.6-6.20); Red Cell Distribution Width 14.6 % (11.5-14.5); White Blood Count 10.4 K/mm3 (4.5-10.0)
[2024-02-05 11:33] LABS: Anion Gap 5 mmol/L (4-12); Blood Urea Nitrogen 27 mg/dL (9-20); Calcium 8.6 mg/dL (8.4-10.2); Carbon Dioxide 27 mmol/L (22-30); Chloride 107 mmol/L (98-107); Estimated CRCL calculation 49 ml/min; Estimated Glomerular Filt Rate > 60; Glucose 97 mg/dL (65-110); Magnesium 2.5 mg/dL (1.6-2.3); Potassium 3.6 mmol/L (3.4-5.0); Sodium 139 mmol/L (137-145)
--- NOTE | 2024-02-05 17:13 | PC.NURSE ---
Spoke with Arcelia from [employer] labou[employer] regarding patient's AM placement of dual chamber pacemaker, will have consent form ready and start a second L sided IV. Appropriate AM medications will be held.
[2024-02-05] MEDS: hydrALAZINE 10 MG TABLET PO (23:59)
[2024-02-06] VITALS (24 sets, daily range): BP systolic 142–168; BP diastolic 60–85; PULSE 35–76; RESP 14–16; TEMP 35.7–37.4; O2SAT 93–98
[2024-02-06] MEDS: hydrALAZINE 10 MG TABLET PO (05:04)
--- NOTE | 2024-02-06 08:02 | ECG_ITS ---
Test Date: 2024-02-06 13:02:04 Measurements Intervals [place] Rate: 60 P: 40 GA: 172 QRS: -71 QRSD: 173 T: 97 QT: 552 QTc: 553 Interpretive Statements SINUS RHYTHM WITH ATRIAL SENSING AND VENTRICULAR PACING ABNORMAL ECG Compared to ECG 02/04/2024 15:27:59 EVIDENCE OF A DUAL-CHAMBER PACEMAKER IMPLANT WHICH APPEARS TO BE FUNCTIONING NORMALLY Electronically Signed On 02-06-2024 15:55:09 CDT by Edwin Fernandez M.D.
[2024-02-06] MEDS: hydroCHLOROthiazide 25 MG TABLET PO (09:01)
[2024-02-06] MEDS: lisinopriL 20 MG TABLET PO (09:01)
[2024-02-06] MEDS: hydrALAZINE HCL 50 MG TABLET PO ×2 (09:01→16:56)
--- NOTE | 2024-02-06 11:06 | PC.NURSE ---
Pt left via stretcher for pacemaker insertion at 1100
--- NOTE | 2024-02-06 11:23 | WPDMODSED ---
Moderate Sedation Note-Pt Data Patient Data Diagnosis: second-degree AV block Present Complaint: no complaints Procedure to be performed/Plan: implantation of permanent pacemaker Allergies Allergy/AdvReac Type Severity Reaction Status Date / Time No Known Allergies Allergy Verified 09/20/22 20:27 Home Medications Medication Instructions Recorded Confirmed Type lisinopril 5 mg PO DAILY 02/03/24 02/03/24 History Current Medications: Active Medications Acetaminophen (Acetaminophen 325 Mg Tablet) 650 mg PO Q4H PRN PRN Reason: Mild Pain (1-3) or Fever Al Hydrox/Mg Hydrox/Simethicone (Mag Hydrox/Al Hydrox/Simeth 30 Ml Udc) 30 ml PO Q6H PRN PRN Reason: Indigestion Hydralazine HCl (Hydralazine 10 Mg Tablet) 10 mg PO Q6H PRN PRN Reason: Hypertension SBP > 150 mmHg Last Admin: 02/06/24 05:04 Dose: 10 mg Hydralazine HCl (Hydralazine Hcl 50 Mg Tablet) 50 mg PO TID [facility] Last Admin: 02/06/24 09:01 Dose: 50 mg Hydrochlorothiazide (Hydrochlorothiazide 25 Mg Tablet) 25 mg PO QAM [facility] Last Admin: 02/06/24 09:01 Dose: 25 mg Lisinopril (Lisinopril 20 Mg Tablet) [facility] [place] Last Admin: 02/06/24 09:01 Dose: 20 mg Ondansetron HCl (Ondansetron Inj 4 Mg/2 Ml Vial) 4 mg IV PUSH Q4H PRN PRN Reason: Nausea Polyethylene Glycol (Polyethylene Glycol 3350 17 Gm Powd.Pack) 17 gm PO QAM PRN PRN Reason: Constipation Sedation/Anesthesia: No previous sedation/anesthesia problems (including family history). [facility] Past Medical History Medical History High cholesterol Hypertension Surgical History Surgical History History of cholecystectomy [place] Social History Social History Years smoked: 66 Smoking status: Current every day smoker Tobacco type: cigarettes Alcohol intake: never Substance use: current Last use: 02/03/2024 Do You Feel Safe in your Home?: Yes Lack of Transportation: YES Lack of Food: Never True Current Housing: I Have Housing Concerned About Future Housing: No Difficulty Paying Gas/Electric Bills: No Difficulty Paying for Meds: No Currently Unemployed: No Education: Grade School Difficulty w/ Childcare or Family Care: No Spiritual care concerns: No Mod Sed Physical Exam Physical Exam Pre Procedural Exam: Normal: Appearance ( elderly male appearing his stated age), Neck, Throat, Airway, Lungs, Heart Size and Extremities and Variation: Heart Rate ( heart rate 35) and Heart Rhythm ( two-to-one AV block) Hours since solid foods: 12 Hours since liquid intake: 12 Mallampati Classification: class II Internal Medicine - PN: Obj Da Vital Signs Vital Signs: Vital Signs - 24 hr 02/05/24 11:58 02/05/24 12:00 02/05/24 12:00 Temperature 36.7 C Pulse Rate 68 74 74 Respiratory Rate 16 15 Blood Pressure 160/60 H Pulse Oximetry 96 97 Oxygen Delivery Room Air 02/05/24 14:00 02/05/24 16:00 02/05/24 16:00 Temperature 36.8 C Pulse Rate 64 64 66 Respiratory Rate 20 Blood Pressure 160/62 H Pulse Oximetry 99 Oxygen Delivery 02/05/24 16:00 02/05/24 18:00 02/05/24 19:59 Temperature 36.2 C L Pulse Rate 65 79 62 Respiratory Rate 17 20 Blood Pressure 154/66 H Pulse Oximetry 98 96 Oxygen Delivery Room Air 02/05/24 20:00 02/05/24 20:00 02/05/24 22:00 Temperature Pulse Rate 61 66 Respiratory Rate Blood Pressure Pulse Oximetry Oxygen Delivery Room Air 02/05/24 23:55 02/06/24 00:00 02/06/24 00:00 Temperature 36.4 C Pulse Rate 40 L 74 Respiratory Rate 16 Blood Pressure 181/56 H Pulse Oximetry 97 Oxygen Delivery Room Air 02/06/24 02:00 02/06/24 04:00 02/05/24 23:23 Temperature 36.6 C Pulse Rate 65 46 L Respiratory Rate 15 Blood Pressure 168/60 H Pulse Oximetry 98 97 Oxygen Delivery Room Air
--- NOTE | 2024-02-06 12:34 | WPDCARDPROC ---
Cardiac Cath Procedure Note Date of procedure:: 02/06/24 Performing physician:: Edwin Fernandez MD Indication:: second-degree AV block Mobitz type 2 Brief clinical history:: this is a 78-year-old man who was hospitalized for treatment of hypertension. Following hospitalization he was found to be bradycardic with a predominant rhythm of sinus with second-degree AV block Mobitz type 2. For treatment of this permanent pacemaker implant has been recommended Procedure Procedure performed:: permanent Medtronic dual-chamber pacemaker implantation Sedation/Medication given:: fentanyl 50 mg Versed 2 mg case start time 11:38 a.m. case end time 12:31 p.m. sedation provided by Nadine Khanna RN, trained observer Access site:: left subclavian Estimated blood loss:: less than 25 cc Procedure note:: patient was brought to the cardiac catheterization lab in the postabsorptive state where the left anterior chest wall was prepped and draped in normal sterile fashion. Anesthesia was provided with 20 cc of lidocaine infiltrated below the clavicle. After this an incision was made about 1 in below the clavicle from the mid clavicular line to the deltopectoral groove. Sharp and blunt dissection was used to separate the subcutaneous tissue and electrocautery was used to provide cutaneous hemostasis. A blunt dissection was then used to create a pacemaker pocket inferior to the incision along the prepectoral fascial plane. This pocket was packed with antibiotic soaked 4 x 4. After this attention was turned to venous access. Using the modified Seldinger technique the left subclavian vein was punctured twice and 2 J tipped guidewires were advanced under fluoroscopic visualization to the level of the right atrium. Then using the 2 7 [place] pacemaker safe sheath the leads detailed below were advanced into the venous circulation into the right atrium. Attention was turned to a positioning the ventricular lead. The stylet was withdrawn and a J-tip stylet was performed using a 3 cc syringe this was then used to steer the lead through the RV out to the pulmonary artery position. A straight stylet was placed in the lead it was withdrawn and placed into the right ventricular apical position. The fixation screw was deployed. Using the analyzer the lead was tested and appropriate pacing and sensing performance was demonstrated. Following this attention was turned to the atrial lead positioning. A stylet was withdrawn and a preformed atrial J was placed into the lead it was maneuvered into the right atrial appendage position. The fixation screw was deployed and upon withdrawal of the stylet the lead was fixed into position. The lead was then tested and again appropriate pacing and sensing performance was demonstrated. Following this the leads were sutured to the base of the pocket using the suture sleeves and 2-0 silk ties. Retained sponge was removed from the pocket the pocket was then irrigated with Ancef infused saline. The permanent generator was then connected to the leads using the torque wrench entire assembly was placed into the newly created pocket. The pocket was then closed in layers using 3-0 Vicryl in an interrupted fashion for the subcutaneous tissue 4-0 Vicryl in a running subcuticular fashion for the skin. The wound was dressed with an Aquacel dressing the left arm was placed in an immobilizer and the patient was taken to the holding area for post implant recovery. The procedure was uneventful, well tolerated And there were no apparent complications. Findings:: the patient received a permanent Medtronic dual-chamber pacing system pacemaker model W1DR01 serial number [id number] . device is programmed in the DDDR mode lower rate limit 60 upper rate limit 120 av delay 180/150 seconds. The atrial lead is a bipolar Medtronic screw-in lead model 5076-45 serial number [id number]. P waves sensed at 2.8 mV impedance 6 Ohms threshold 0 5
--- NOTE | 2024-02-06 12:55 | PM.IMPN ---
Progress Note: A&P Assessment and Plan (1) High-grade atrioventricular block: Code(s): I44.39 - Other atrioventricular block Status: Acute (2) Tobacco dependence: Code(s): F17.200 - Nicotine dependence, unspecified, uncomplicated Status: Acute (3) Hypertensive crisis: Code(s): I16.9 - Hypertensive crisis, unspecified Status: Acute (4) Thrombocytopenia: Code(s): D69.6 - Thrombocytopenia, unspecified Status: Acute Plan This is a 78-year-old male with past medical history significant for hypertension, tobacco dependence. patient was brought to the emergency room for evaluation due to dizziness for several days, patient denies any vision changes, shortness of breath, chest pain, leg swelling, syncope or near-syncope, No fevers, no rigors, no chills. in emergency room patient was found to have a systolic blood pressure of 230/87. Patient was also found to have a heart rate that was elated in between 30-50. Patient had pacer pads placed on. Patient has been admitted for further evaluation management and treatment. Symptomatic second-degree AV block, Mobitz 2 Patient has dizziness EKG showed second-degree AV block Mobitz 2, 2 :1 conduction Hold beta-bernarda, calcium channel bernarda 02/03 echocardiogram 1. Left ventricular chamber dimension is normal. 2. Left ventricular systolic function is normal, estimated at 65-70%. 3. The left ventricular diastolic function is grade I diastolic dysfunction. 4. Right ventricular systolic function is normal. 5. There is mild mitral valve regurgitation. 6. There is mild tricuspid valve regurgitation. 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 hydralazine 50 mg t.i.d. p.o. Continue hydralazine IV p.r.n. with parameters Avoid calcium channel bernarda beta-bernarda Tobacco dependence: nicotine patch as needed DT prophylaxis SCDs Subjective Date/time seen: 02/06/24 12:55 Interval history: No overnight events. Underwent pacemaker placement today. Reports some cough. Early when he lays down Review of Systems Review of Systems: All systems reviewed & are unremarkable except as noted in HPI and below Exam Narrative: GENERAL: Pleasant, in no acute distress. Well-nourished. - EYES: EOMI. Anicteric. - HENT: Moist mucous membranes. - LUNGS: Clear to auscultation bilaterally, no wheezing, rhonchi, or rales. - CARDIOVASCULAR: Paced rhythm. No murmur. No JVD. - ABDOMEN: Soft, non-tender and non-distended. No palpable masses. - EXTREMITIES: No edema. Peripheral pulses 2+. Non-tender. - NEUROLOGIC: No focal neurological deficits. CN II-XII grossly intact. - PSYCHIATRIC: Awake, Alert and oriented x 3. Appropriate mood and affect. - SKIN: No rashes or lesions. Warm. - LYMPH: No cervical lymphadenopathy. Objective Data Vital Signs Vital Signs: Vital Signs - 24 hr 02/05/24 14:00 02/05/24 16:00 02/05/24 16:00 Temperature 98.3 F Pulse Rate 64 64 66 Respiratory Rate 20 Blood Pressure 160/62 H Pulse Oximetry 99 Oxygen Delivery 02/05/24 16:00 02/05/24 18:00 02/05/24 19:59 Temperature 97.2 F L Pulse Rate 65 79 62 Respiratory Rate 17 20 Blood Pressure 154/66 H Pulse Oximetry 98 96 Oxygen Delivery Room Air 02/05/24 20:00 02/05/24 20:00 02/05/24 22:00 Temperature Pulse Rate 61 66 Respiratory Rate Blood Pressure Pulse Oximetry Oxygen Delivery Room Air 02/05/24 23:55 02/06/24 00:00 02/06/24 00:00 Temperature 97.6 F Pulse Rate 40 L 74 Respiratory Rate 16 Blood Pressure 181/56 H Pulse Oximetry 97 Oxygen Delivery Room Air 02/06/24 02:00 02/06/24 04:00 02/05/24 23:23 Temperature 97.8 F Pulse Rate 65 46 L
--- NOTE | 2024-02-06 14:57 | PC.NURSE ---
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
[2024-02-06] MEDS: SODIUM CHLORIDE 0.9% IV 1,000 ML 50 ML IV CONT (14:59)
[2024-02-06] MEDS: ceFAZolin 1 GM/NS 50 ML 1 GM/50 ML BAG IVPB (18:43)
[2024-02-06] MEDS: ACETAMINOPHEN 325 MG TABLET 650 MG PO (20:57)
[2024-02-07] VITALS (9 sets, daily range): BP systolic 149–176; BP diastolic 76–90; PULSE 60–79; RESP 15–16; TEMP 36.1–36.7; O2SAT 93–97
[2024-02-07] MEDS: ceFAZolin 1 GM/NS 50 ML 1 GM/50 ML BAG IVPB (04:03)
[2024-02-07 04:40] LABS: Basophils Absolute Auto 0.1 K/mm3 (0.0-0.1); Basophils Percent Auto 0.7 % (0.2-1.2); Eosinophils Absolute Auto 0.2 K/mm3 (0-0.3); Hematocrit 48.2 % (42.0-52.0); Hemoglobin 15.8 g/dL (14.0-18.0); Immature Granulocyte Absolute 0.06 K/mm3 (0.00-0.031); Immature Granulocyte Percent A 0.5 % (0-0.5); Immature Platelet Fraction Pct 16.9 % (0.9-11.2); Lymphocytes Absolute Auto 2.88 K/mm3 (0.9-3.2); Lymphocytes Percent Auto 26.2 % (18.3-44.2); Mean Corpuscular HGB Conc 32.8 g/dl (32-36); Mean Corpuscular Volume 85.5 fl (80-100); Mean Platelet Volume 12.8 fl (7.4-10.4); Monocytes Absolute Auto 1.3 K/mm3 (0.1-0.6); Monocytes Percent Auto 12.2 % (2.6-8.5); Neutrophils Absolute Auto 6.4 K/mm3 (1.3-6.7); Neutrophils Percent Auto 58.4 % (45.5-73.1); Platelet Count Result 124 k/mm3 (150-375); Red Blood Count 5.64 M/mm3 (4.6-6.20); Red Cell Distribution Width 14.5 % (11.5-14.5)
[2024-02-07 04:50] LABS: Alanine Aminotransferase 14 U/L (6-50); Albumin Level 3.9 g/dL (3.5-5.1); Alkaline Phosphatase 90 U/L (38-126); Anion Gap 6 mmol/L (4-12); Aspartate Amino Transferase 26 U/L (17-59); Bilirubin,Total 1.1 mg/dL (0.2-1.3); Blood Urea Nitrogen 23 mg/dL (9-20); Calcium 8.3 mg/dL (8.4-10.2); Carbon Dioxide 25 mmol/L (22-30); Chloride 104 mmol/L (98-107); Estimated CRCL calculation 49 ml/min; Estimated Glomerular Filt Rate > 60; Glucose 102 mg/dL (65-110); Magnesium 2.3 mg/dL (1.6-2.3); Potassium 3.7 mmol/L (3.4-5.0); Sodium 135 mmol/L (137-145)
[2024-02-07] MEDS: hydrALAZINE HCL 50 MG TABLET PO ×3 (10:08→17:45)
[2024-02-07] MEDS: hydroCHLOROthiazide 25 MG TABLET PO (10:08)
[2024-02-07] MEDS: lisinopriL 20 MG TABLET PO ×2 (10:08→11:49)
--- NOTE | 2024-02-07 12:09 | PM.PNCARD ---
Progress Note: A&P Assessment and Plan (1) High-grade atrioventricular block: Code(s): I44.39 - Other atrioventricular block Status: Acute Assessment and Plan: s/p dual chamber pacemaker no acute events CXR with no pneumothorax, intermittent pacing overnight instruction given and f/u in clinic (2) Tobacco dependence: Code(s): F17.200 - Nicotine dependence, unspecified, uncomplicated Status: Acute Assessment and Plan: counseled to stop smoking (3) Hypertensive crisis: Code(s): I16.9 - Hypertensive crisis, unspecified Status: Acute Assessment and Plan: better controlled, still elevated overnight, plan increase lisinopril to 40 mg daily, hydralazine and HCTZ (4) Thrombocytopenia: Code(s): D69.6 - Thrombocytopenia, unspecified Status: Acute Plan If BP controlled after increase lisinopril dose, can be discharged and f/u in clinic Subjective Date/time seen: 02/07/24 12:09 Interval history: no acute events Review of Systems Review of Systems: All systems reviewed & are unremarkable except as noted in HPI and below Exam Const: General: comfortable and no acute distress Other: Able to lie flat Neck: Neck: supple and no JVD Carotids: no bruits Resp: Auscultation: clear to auscultation bilaterally and lung sounds not diminished Other: No chest wall tenderness Cardio: Rate: regular rate Rhythm: regular rhythm Heart sounds: no gallops, no murmurs and no rubs GI: GI Palp: Yes Soft to palpation and No Tenderness to palpation present (GI) Auscultation: normal bowel sounds Skin: General skin exam: normal color, rashes and/or lesions noted and no erythema Other: Warm Objective Data Vital Signs Vital Signs: Vital Signs - 24 hr 02/06/24 15:01 02/06/24 15:02 02/06/24 15:03 Temperature 35.7 C L Pulse Rate 61 69 69 Respiratory Rate 16 16 Blood Pressure 149/81 H Pulse Oximetry 98 98 Oxygen Delivery Room Air 02/06/24 12:50 02/06/24 13:00 02/06/24 13:15 Temperature 36.4 C Pulse Rate 60 60 60 Respiratory Rate 16 16 14 Blood Pressure 159/71 H 166/84 H 153/77 H Pulse Oximetry 96 95 95 Oxygen Delivery Room Air Room Air Room Air 02/06/24 13:30 02/06/24 13:45 02/06/24 14:15 Temperature Pulse Rate 60 60 60 Respiratory Rate 16 14 14 Blood Pressure 150/80 H 149/71 H 161/85 H Pulse Oximetry 96 95 96 Oxygen Delivery Room Air Room Air Room Air 02/06/24 16:00 02/06/24 16:00 02/06/24 15:45 Temperature 36.9 C Pulse Rate 69 69 68 Respiratory Rate 16 16 Blood Pressure 142/70 H Pulse Oximetry 98 93 Oxygen Delivery Room Air 02/06/24 16:45 02/06/24 18:00 02/06/24 18:45 Temperature 36.6 C 37.4 C Pulse Rate 58 L 76 61 Respiratory Rate 16 16 Blood Pressure 153/77 H 150/65 H Pulse Oximetry 97 96 Oxygen Delivery 02/06/24 19:54 02/06/24 20:53 02/06/24 20:00 Temperature 36.4 C Pulse Rate 65 Respiratory Rate 16 Blood Pressure 152/76 H Pulse Oximetry 95 96 Oxygen Delivery Room Air Room Air 02/06/24 20:00 02/06/24 22:00 02/06/24 23:25 Temperature Pulse Rate 63 66 Respiratory Rate Blood Pressure Pulse Oximetry Oxygen Delivery Room Air 02/07/24 00:00 02/07/24 00:00 02/07/24 01:58 Temperature 36.3 C L Pulse Rate 66 66 61 Respiratory Rate 15 Blood Pressure 159/88 H Pulse Oximetry 96 Oxygen Delivery 02/07/24 04:00 02/07/24 04:00 02/07/24 04:00 Temperature 36.1 C L Pulse Rate 60 60 Respiratory Rate 16 Blood Pressure 166/84 H Pulse Oximetry 93 Oxygen Delivery Room Air 02/07/24 06:00 02/07/24 07:58 Temperature 36.1 C L Pulse Rate 60 60 Respiratory Rate 16 Blood Pressure 176/90 H Pulse Oximetry 97 Oxygen Delivery Intake/Output Intake/Output: Intake & Output 02/04/24 02/05/24 02/06/24 02/07/24 23:59 23:59 23:59 23:59 Intake Total 3852 315 4151 960 Output Total 600 1375 200 500 Balance 420 -
--- NOTE | 2024-02-07 13:57 | PM.IMPN ---
Progress Note: A&P Assessment and Plan (1) High-grade atrioventricular block: Code(s): I44.39 - Other atrioventricular block Status: Acute (2) Tobacco dependence: Code(s): F17.200 - Nicotine dependence, unspecified, uncomplicated Status: Acute (3) Hypertensive crisis: Code(s): I16.9 - Hypertensive crisis, unspecified Status: Acute (4) Thrombocytopenia: Code(s): D69.6 - Thrombocytopenia, unspecified Status: Acute Plan This is a 78-year-old male with past medical history significant for hypertension, tobacco dependence. patient was brought to the emergency room for evaluation due to dizziness for several days, patient denies any vision changes, shortness of breath, chest pain, leg swelling, syncope or near-syncope, No fevers, no rigors, no chills. in emergency room patient was found to have a systolic blood pressure of 230/87. Patient was also found to have a heart rate that was elated in between 30-50. Patient had pacer pads placed on. Patient has been admitted for further evaluation management and treatment. Symptomatic second-degree AV block, Mobitz 2 Patient has dizziness EKG showed second-degree AV block Mobitz 2, 2 :1 conduction Hold beta-bernarda, calcium channel bernarda 02/03 echocardiogram 1. Left ventricular chamber dimension is normal. 2. Left ventricular systolic function is normal, estimated at 65-70%. 3. The left ventricular diastolic function is grade I diastolic dysfunction. 4. Right ventricular systolic function is normal. 5. There is mild mitral valve regurgitation. 6. There is mild tricuspid valve regurgitation. Continue Telemetry monitoring Consult [place] for evaluation treatment, appreciate cardiology consultation Status post pacemaker implantation 02/06/2024 Hypertensive emergency Blood pressure 232/ 87 POA On lisinopril 20 mg daily p.o., hydrochlorothiazide 25 mg once and daily p.o. hydralazine 50 mg t.i.d. p.o. Continue hydralazine IV p.r.n. with parameters Avoid calcium channel bernarda beta-bernarda Lisinopril increased to 40 daily today Tobacco dependence: nicotine patch as needed DT prophylaxis SCDs Subjective Date/time seen: 02/07/24 13:57 Interval history: Feeling better. Left arm is sore. No nausea vomiting. Blood pressure medicine adjusted today. Review of Systems Review of Systems: All systems reviewed & are unremarkable except as noted in HPI and below Exam Narrative: GENERAL: Pleasant, in no acute distress. Well-nourished. - EYES: EOMI. Anicteric. - HENT: Moist mucous membranes. - LUNGS: Clear to auscultation bilaterally, no wheezing, rhonchi, or rales. - CARDIOVASCULAR: Paced rhythm. No murmur. No JVD. - ABDOMEN: Soft, non-tender and non-distended. No palpable masses. - EXTREMITIES: No edema. Peripheral pulses 2+. Non-tender. - NEUROLOGIC: No focal neurological deficits. CN II-XII grossly intact. - PSYCHIATRIC: Awake, Alert and oriented x 3. Appropriate mood and affect. - SKIN: No rashes or lesions. Warm. - LYMPH: No cervical lymphadenopathy. Objective Data Vital Signs Vital Signs: Vital Signs - 24 hr 02/06/24 15:01 02/06/24 15:02 02/06/24 15:03 Temperature 96.2 F L Pulse Rate 61 69 69 Respiratory Rate 16 16 Blood Pressure 149/81 H Pulse Oximetry 98 98 Oxygen Delivery Room Air 02/06/24 14:15 02/06/24 16:00 02/06/24 16:00 Temperature Pulse Rate 60 69 69 Respiratory Rate 14 16 Blood Pressure 161/85 H Pulse Oximetry 96 98 Oxygen Delivery Room Air Room Air 02/06/24 15:45 02/06/24 16:45 02/06/24 18:00 Temperature 98.4 F 97.8 F Pulse Rate 68 58 L 76 Respiratory Rate 16 16 Blood Pressure 142/70 H 153/77 H Pulse Oximetry 93 97 Oxygen Delivery 02/06/24 18:45 02/06/24 19:54 02/06/24 20:53 Temperature 99.4 F 97.6 F Pulse Rate 61 65 Respiratory Rate 16 16 Blood Pressure 150/65 H 152/76 H Pulse Oximetry 96 95 96 Oxygen Delivery Room Air
--- NOTE | 2024-02-07 17:55 | PM.DS ---
DS: Admitting Diagnosis Discharge Date 02/07/2024 Admitting Diagnosis Heart block DS: Discharge Diagnosis Discharge Diagnosis (1) High-grade atrioventricular block: Code(s): I44.39 - Other atrioventricular block Status: Acute (2) Tobacco dependence: Code(s): F17.200 - Nicotine dependence, unspecified, uncomplicated Status: Acute (3) Hypertensive crisis: Code(s): I16.9 - Hypertensive crisis, unspecified Status: Acute (4) Thrombocytopenia: Code(s): D69.6 - Thrombocytopenia, unspecified Status: Acute DS: Summary Hospital Course Hospital Course: This is a 78-year-old male with past medical history significant for hypertension, tobacco dependence. patient was brought to the emergency room for evaluation due to dizziness for several days, patient denies any vision changes, shortness of breath, chest pain, leg swelling, syncope or near-syncope, No fevers, no rigors, no chills. in emergency room patient was found to have a systolic blood pressure of 230/87. Patient was also found to have a heart rate that was elated in between 30-50. Patient had pacer pads placed on. Patient has been admitted for further evaluation management and treatment. Symptomatic second-degree AV block, Mobitz 2 Patient has dizziness EKG showed second-degree AV block Mobitz 2, 2 :1 conduction Hold beta-bernarda, calcium channel bernarda 02/03 echocardiogram 1. Left ventricular chamber dimension is normal. 2. Left ventricular systolic function is normal, estimated at 65-70%. 3. The left ventricular diastolic function is grade I diastolic dysfunction. 4. Right ventricular systolic function is normal. 5. There is mild mitral valve regurgitation. 6. There is mild tricuspid valve regurgitation. 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 hydralazine 50 mg t.i.d. p.o. Continue hydralazine IV p.r.n. with parameters Avoid calcium channel bernarda beta-bernarda Lisinopril increased to 40 daily today and blood pressure improved Titrated as an outpatient basis. Tobacco dependence: nicotine patch as needed DT prophylaxis SCDs Time Spent with Patient Time attestation: Total time spent providing and/or coordinating discharge services: 35 minutes Exam Narrative: GENERAL: Pleasant, in no acute distress. Well-nourished. - EYES: EOMI. Anicteric. - HENT: Moist mucous membranes. - LUNGS: Clear to auscultation bilaterally, no wheezing, rhonchi, or rales. - CARDIOVASCULAR: Paced rhythm. No murmur. No JVD. - ABDOMEN: Soft, non-tender and non-distended. No palpable masses. - EXTREMITIES: No edema. Peripheral pulses 2+. Non-tender. - NEUROLOGIC: No focal neurological deficits. CN II-XII grossly intact. - PSYCHIATRIC: Awake, Alert and oriented x 3. Appropriate mood and affect. - SKIN: No rashes or lesions. Warm. - LYMPH: No cervical lymphadenopathy. DS: Data Data Completed and Pending Completed studies during hospitalization: Exam Type: CA echo doppler color flow Study Info Indications - uncontrolled htn Complete two-dimensional, color flow and Doppler transthoracic echocardiogram is performed with contrast to opacify the left ventricle and to improve the deliniation of the left ventricle endocardial borders. Contrast/Agitated Saline Contrast/Ag. Saline: Definity Amount: 2.00 ml Administered By: Viji Real RDCS Existing IV Access: Yes IV Access Condition: patent with no signs of infiltration Summary 1. Left ventricular chamber dimension is normal. 2. Left ventricular systolic function is normal, estimated at 65-70%. 3. The left ventricular
== END 2024-02-07 19:25 | disposition home or self-care (01) | DRG 171 ==
LOC: ANHED 20:51 → ANHIMU 23:35
PROVIDERS: Hospitalist; Internal Medicine; Specialist; Admitting Provider Internal Medicine; Emergency Provider Student in an Organized Health Care Education/Training Program; PCP Physician Assistant; Visit Provider Internal Medicine
PROC: 0JH606Z Insertion of Pacemaker, Dual Chamber into Chest Subcutaneous Tissue and Fascia, Open Approach (ICD-10-PCS; CPT 33208; principal; 2024-02-06 12:00)
DX: I44.1 Atrioventricular block, second degree (principal); I16.9 Hypertensive crisis, unspecified; E78.00 Pure hypercholesterolemia, unspecified; D69.6 Thrombocytopenia, unspecified; R00.1 Bradycardia, unspecified; F17.210 Nicotine dependence, cigarettes, uncomplicated; Z20.822 Contact with and (suspected) exposure to COVID-19
CPT/HCPCS: 33208; 36415; 70450; 71045; 71046; 80048; 80053; 81003; 83735; 84443; 84484; 85025; 85027; 85055; 85610; 87637; 93005; 93306; 96374; 96375; 96376; 99285; A9270; C1779; C1785; J0360; J0461; J0690; J2250; J3010; J7030; J7040; Q9957